=== PATIENT | male | born 1950 ===

== ENCOUNTER 2017-04-25 20:31 | Emergency (ER) | payer OTHER ==
[2017-04-25 20:36] VITALS: BP 168/97
[2017-04-25] MEDS ORDERED: LIDOCAINE 1% 2 ML VIAL ONE (20:49)
[2017-04-25] MEDS ORDERED: BACITRACIN OINT TOP ONE (21:19)
--- NOTE | 2017-04-25 21:20 | ED Physician Documentation ---
PD HPI UPPER EXT INJURY - Stated complaint Stated Complaint: LT THUMB LAC - Chief complaint Chief Complaint: Laceration - History obtained from History obtained from: Patient - History of Present Illness Location: Left, Finger Type of injury: Laceration Where injury occurred: Home Timing - onset: How many hours ago (1) Timing - details: Abrupt onset Worsened by: Moving, Palpating Contributing factors: No: Anticoagulated, Prior ortho surgery Similar symptoms before: Has not had sx before Recently seen: Not recently seen - Additonal information Additional information: Patient is a 66 year old male with no significant past medical history who is presenting to the emergency department for thumb laceration. Patient states that he was cleaning a non-moving chain of his motorcycle when he cut his hand. Patient states he washed it out for about 20 minutes before coming in since the bleeding wouldn't stop. Review of Systems Constitutional: denies: Fever, Chills Eyes: reports: Reviewed and negative Ears: reports: Reviewed and negative Nose: reports: Reviewed and negative Throat: reports: Reviewed and negative Cardiac: reports: Reviewed and negative Respiratory: reports: Reviewed and negative GI: denies: Nausea, Vomiting : reports: Reviewed and negative Skin: reports: Laceration (s) Musculoskeletal: reports: Extremity pain Neurologic: denies: Generalized weakness, Focal weakness, Numbness Immunocompromised: denies: Immunocompromised PD PAST MEDICAL HISTORY - Past Medical History Past Medical History: No - Past Surgical History Past Surgical History: No - Present Medications Home Medications: Ambulatory Orders Medication Instructions Recorded Confirmed Nifedipine [Nifedipine ER] 60 mg PO DAILY 04/25/17 04/25/17 - Allergies Allergies/Adverse Reactions: Allergies Allergy/AdvReac Type Severity Reaction Status Date / Time JIM Inhibitors Allergy Unknown Verified 04/25/17 20:37 - Social History Does the pt smoke?: No Smoking Status: Never smoker Does the pt drink ETOH?: No Does the pt have substance abuse?: No - Immunizations Immunizations are current?: Yes Immunizations: TDAP current <10years PD ED PE NORMAL - Vitals Vital signs reviewed: Yes - General General: Alert and oriented X 3, No acute distress - HEENT HEENT: Atraumatic - Cardiac Cardiac: RRR - Respiratory Respiratory: No respiratory distress - Abdomen Abdomen: Non distended - Neuro Neuro: Alert and oriented X 3, No motor deficit, No sensory deficit, Normal speech - Psych Psych: Normal mood, Normal affect PD ED PE EXPANDED - Extremities Extremities: Left finger(s) (1st digit distal 0.5 cm laceration, moderate active bleeding, no fb) Results - Vitals Vitals: Vital Signs - 24 hr 04/25/17 20:34 Temperature 36.8 C Heart Rate 80 Respiratory 16 Rate Blood Pressure 168/97 H O2 Saturation 96 Oxygen O2 Source Room air Procedures - Laceration (location) left thumb Length in cm: 0.5 Wound type: Linear Neurovascular status: Sensory intact, Motor intact, Vascular intact Tendon involvement: Tendon intact Anesthesia: Lidocaine 1% Wound Preparation: Chlorhexadine, Irrigated copiously NS Skin layer closure: Size #-0 - enter number (4), Sutures - enter # (3) Other: Patient tolerated well, No complications, Dressing applied, Tetanus UTD Complexity: Simple - Regional nerve block Nerve block site: Digital - note digit(s) (1st digit left hand) Right / left: Left Nerve block anesthesia: Lidocaine 1% Nerve block aftercare: Excellent anesthesia, No complications PD MEDICAL DECISION MAKING - ED course Complexity details: reviewed old records, reviewed results, re-evaluated patient , considered differential, d/w patient ED course: Patient was seen and examined at bedside. Patient was well appearing and in no distress. laceration was repaired as described above. Patient required no further work up and was stable for discharge with outpatient follow up. Departure - Departure Disposition: 01 Home, Self Care Clinical Impression: Laceration Condition: Good Instructions: ED Laceration Hand Follow-Up: primary,care provider [Other] - Within 1 week Comments: please keep your wound clean and dry and monitor for signs of infection. You should take motrin or tylenol as needed for pain. You should follow up with your doctor in 7-10 days for suture removal. You may return to the emergency department at any time for new, worsening or uncontrollable symptoms.
== END 2017-04-25 21:31 | disposition home or self-care (01) ==
LOC: ED 20:31
DX: S61.012A Laceration without foreign body of left thumb without damage to nail, initial encounter (principal); W45.8XXA Other foreign body or object entering through skin, initial encounter; Y93.89 Activity, other specified; Y92.009 Unspecified place in unspecified non-institutional (private) residence as the place of occurrence of the external cause
CPT/HCPCS: 12001; 99282; 99283; A9270

== ENCOUNTER 2021-10-04 08:00 | Outpatient (CLI) | payer MEDICARE, BC ==
--- NOTE | 2021-10-04 10:33 | XRAY Report ---
PROCEDURE: Hip w/Pelvis 2-3V RT INDICATIONS: RIGHT HIP OSTEOARTHRITIS TECHNIQUE: AP pelvis with lateral view(s) of the right hip(s). COMPARISON: None. FINDINGS: Bones: No acute fracture or dislocation. There is mild right hip joint space narrowing and small chester ar osteophytes. There is likely a small bone island in the intertrochanteric right femur. Left hip ar throplasty is grossly intact. Soft tissues: The visualized bowel gas pattern is normal. No suspicious soft tissue calcifications. IMPRESSION: 1. Mild right hip osteoarthritis. 2. Probable right femoral bone island. If further characterization is warranted in an asymptomatic pa tient, consider 3 month radiographic follow up. If the patient endorses focal atraumatic pain in this region, further characterization with MRI could be considered. Reviewed by: Iris Peraza MD on 10/04/2021 10:31 AM PDT Approved by: Iirs Peraza MD on 10/04/2021 10:31 AM PDT Station ID: [id number]
== END 2021-10-04 23:59 | disposition home or self-care (01) ==
LOC: DI.S 08:00
PROVIDERS: ATTEND Emergency Medicine
DX: M16.11 Unilateral primary osteoarthritis, right hip (principal); R93.6 Abnormal findings on diagnostic imaging of limbs